=== PATIENT | male | born 1980 | race Caucasian/White ===

== ENCOUNTER 2017-11-20 21:41 | Emergency (ER) | payer BC ==
[~2017-11-20] VITALS: Ht 172.7 cm; Wt 95.3 kg
[~2017-11-20 21:41] MED LIST: AMOXICILLIN500 MG PO; NKHM
[2017-11-20] MEDS ORDERED: KEFLEX500 M1 PO (23:13)
== END 2017-11-20 23:14 | disposition home or self-care (01) ==
LOC: ED 21:41
DX: M79.89 Other specified soft tissue disorders (principal); R60.0 Localized edema; M79.605 Pain in left leg; W21.07XA Struck by softball, initial encounter; Y93.64 Activity, baseball; Y92.89 Other specified places as the place of occurrence of the external cause; Y99.9 Unspecified external cause status

== ENCOUNTER 2018-12-05 20:40 | Emergency (ER) | payer BC, MEDICAID ==
[~2018-12-05] VITALS: Ht 172.7 cm; Wt 97.5 kg
--- NOTE | ~2018-12-05 | EKG ---
[place], [place] ELECTROCARDIOGRAM REPORT NAME: AC PRINCE UNIT #: [id number] ROOM: DOCTOR: EPIPHANY DRAFT REPORT BIRTHDATE: [birth year] [facility] Test Date: 2018-12-05 Test Time: 20:45:21 Pat Name: AC PRINCE Department: Room: Gender: M [employer]: : 1980 Requested By: RADHA ARGUETA Order Number: [id number] Reading MD: Daisy Aguilar MD Measurements Intervals [place] Rate: 107 P: 59 [place]: 154 QRS: 5 QRSD: 77 T: 30 QT: 305 QTc: 407 Interpretive Statements Sinus tachycardia Baseline wander in lead(s) V1,V2,V3,V4,V5,V6 No previous ECG available for comparison Electronically Signed On 12-06-2018 15:56:39 PDT by Daisy Aguilar MD CM:EKGRPT:ELECTROCARDIOGRAM REPORT [id number] RADHA CASANOVA DRAFT REPORT RADHA ARGUETA DO
[~2018-12-05 20:40] MED LIST changes: +KEFLEX500 M1 PO
[2018-12-05 20:56] LABS: BASO # 0.1 10*3/uL (0.0-0.1); EOS # 0.4 10*3/uL (0.0-0.4); EOS % 3.5 % (1.0-4.0); HEMATOCRIT 44.2 % (42.0-52.0); LYMPH # 2.5 10*3/uL (1.3-4.4); LYMPH % 24.4 % (27.0-41.0); MEAN CELL VOLUME 92.7 fl (80.0-94.0); MEAN CORPUSCULAR HGB 29.4 pg (27.0-31.0); MEAN CORPUSCULAR HGB CONC 31.7 g/dl (33.0-37.0); MEAN PLATELET VOLUME 9.9 fl (9.6-12.3); MONO # 0.9 10*3/uL (0.1-1.0); MONO % 9.1 % (3.0-9.0); NEUT # 6.3 10*3/uL (2.3-7.9); NEUT % 61.8 % (47.0-73.0); PLATELET COUNT AUTOMATED 415 10*3/uL (130-400); RED BLOOD COUNT 4.77 10*6/uL (4.50-5.90); RED CELL DISTRI WIDTH 13.9 % (0-14.5); WHITE BLOOD COUNT 10.1 10*3/uL (4.8-10.8)
[2018-12-05 21:13] LABS: ALBUMIN 3.7 gm/dl (3.1-4.5); ALKALINE PHOSPHATASE 97 U/L (45-117); BUN 10 mg/dl (7-24); CHLORIDE 102 mmol/L (98-107); CREATININE 1.33 mg/dL (0.70-1.30); POTASSIUM 3.7 mmol/L (3.5-5.1); SGOT/AST 33 IU/L (3-35); SGPT/ALT 46 U/L (12-78); SODIUM 139 mmol/L (136-145); TOTAL PROTEIN 7.2 gm/dL (6.4-8.2)
[2018-12-05 21:14] LABS: TROPONIN I < 0.015 ng/ml (<0.045)
[2018-12-05] MEDS ORDERED: CYCLOBENZAPRINE10 MG PO (21:57)
[2018-12-05] MEDS ORDERED: IBU800 MG PO (21:57)
[2018-12-05 21:59] LABS: ACT PARTIAL THROMBO TIME 20.3 SECONDS (20.0-32.1); INTERNATIONAL NORM RATIO 1.1 (2.0-3.5)
== END 2018-12-05 22:15 | disposition home or self-care (01) ==
LOC: ED 20:40
PROVIDERS: Student in an Organized Health Care Education/Training Program
DX: R07.89 Other chest pain (principal); R20.0 Anesthesia of skin; Z79.2 Long term (current) use of antibiotics; X50.0XXA Overexertion from strenuous movement or load, initial encounter; Y93.B9 Activity, other involving muscle strengthening exercises; Y92.39 Other specified sports and athletic area as the place of occurrence of the external cause; Y99.8 Other external cause status

== ENCOUNTER → 2020-01-21 | Outpatient (CLI) | payer BC ==
[~2020-01-21] MED LIST changes: +CYCLOBENZAPRINE10 MG PO; +IBU800 MG PO
== END | disposition home or self-care (01) ==
LOC: COVID19 01:05
DX: U07.1 COVID-19 (principal)